=== PATIENT | female | born 1950 | race Caucasian/White ===

== ENCOUNTER 2018-01-23 15:41 | Emergency (ER) | payer OTHER ==
[~2018-01-23] VITALS: Ht 167.6 cm; Wt 65.0 kg
[2018-01-23] MEDS ORDERED: IOHEXOL 350 MG/ML 10 ML VIAL (for RAD DIAG) IVCONTRAST ONE (15:42)
[2018-01-23 15:54] VITALS: BP 133/65; PULSE 88; RESP 16; TEMP 98.2; O2SAT 98
[2018-01-23] MEDS ORDERED: SODIUM CHLOR 0.9% 1000 ML INJ 1,000 ML IV ONE (16:26)
[2018-01-23] MEDS ORDERED: ONDANSETRON HCL 4 MG/2 ML VIAL IV PUSH ONE (16:30)
[2018-01-23] MEDS ORDERED: KETOROLAC TROMETHAMINE 30 MG/ML (IVP) VIAL IV PUSH ONE (16:30)
--- NOTE | 2018-01-23 16:50 | RADRPT ---
EXAM DATE/TIME: 01/23/2018 16:33 [facility] COMPARISON: No previous studies available for comparison. INDICATIONS : Fever and weakness. MEDICAL HISTORY : None. SURGICAL HISTORY : None. ENCOUNTER: Initial ACUITY: 2 days PAIN SCORE: 3/10 LOCATION: Bilateral chest FINDINGS: A single view of the chest demonstrates the lungs to be symmetrically aerated without evidence of mas s, infiltrate or effusion. The cardiomediastinal contours are unremarkable. Osseous structures are intact. CONCLUSION: No acute disease. Vitaly Vasquez MD on January 23, 2018 at 16:48 Board Certified Radiologist. This report was verified electronically.
[2018-01-23 16:56] VITALS: O2SAT 100
[2018-01-23 17:27] LABS: INTERNATIONAL NORMALIZED RATIO 1.1 RATIO; PROTHROMBIN TIME - PATIENT 10.7 SEC (9.8-11.6)
[2018-01-23 17:32] LABS: AUTOMATED NEUTROPHIL # 11.2 TH/MM3 (1.8-7.7); BASOPHIL % 0.2 % (0.0-2.0); HEMATOCRIT 37.9 % (35.0-46.0); LYMPH % 8.2 % (9.0-44.0); LYMPHOCYTE # 1.1 TH/MM3 (1.0-4.8); MEAN CELL VOLUME 84.5 FL (80.0-100.0); MEAN CORPUSCULAR HGB CONC 34.3 % (32.0-36.0); MEAN PLATELET VOLUME 7.6 FL (7.0-11.0); MONO % 6.4 % (0.0-8.0); MONOCYTE # 0.8 TH/MM3 (0-0.9); NEUT % 85.2 % (16.0-70.0); PLATELET COUNT 258 TH/MM3 (150-450); RED BLOOD COUNT 4.48 MIL/MM3 (4.00-5.30); RED CELL DISTRIBUTION WIDTH 13.6 % (11.6-17.2); WHITE BLOOD COUNT 13.1 TH/MM3 (4.0-11.0)
[2018-01-23 17:35] LABS: BILIRUBIN, URINE NEG (NEG); BLOOD, URINE NEG (NEG); GLUCOSE,URINE NEG (NEG); KETONE, URINE 10 mg/dL (NEG); NITRITE,URINE NEG (NEG); SQUAMOUS EPITHELIAL CELL URINE 2 /hpf (0-5); URINE COLOR YELLOW (YELLW/STRAW); URINE LEUKOCYTE ESTERASE SMALL (NEG)
[2018-01-23] MEDS ORDERED: cefTRIAXone INJ 1,000 MG in SODIUM CHLORIDE 0.9% INJ 100 ML IV ONE (17:45)
[2018-01-23 17:49] LABS: ALBUMIN 3.4 GM/DL (3.4-5.0); AST (GOT) 23 U/L (15-37); BICARBONATE 24.9 MEQ/L (21.0-32.0); BLOOD UREA NITROGEN 12 MG/DL (7-18); CALCIUM 9.1 MG/DL (8.5-10.1); CHLORIDE 101 MEQ/L (98-107); CREATININE 0.86 MG/DL (0.50-1.00); GLOMERULAR FILTRATION RATE 66 ML/MIN (>89); GLUCOSE,RANDOM 170 MG/DL (74-106); SODIUM (NA) 136 MEQ/L (136-145)
[2018-01-23 17:55] VITALS: BP 140/67; PULSE 91; RESP 17; O2SAT 96
[2018-01-23 17:55] LABS: ALKALINE PHOSPHATASE 95 U/L (45-117); ALT (GPT) 32 U/L (10-53); TOTAL BILIRUBIN ADULT 0.6 MG/DL (0.2-1.0); TOTAL PROTEIN 7.5 GM/DL (6.4-8.2); TROPONIN I LESS THAN 0.02 NG/ML (0.02-0.05)
--- NOTE | 2018-01-23 18:50 | PD ---
HPI Chief Complaint: Medical Clearance Time Seen by Provider: 16:18 Travel History International Travel<30 days: No Contact w/Intl Traveler<30days: No Traveled to known affect area: No History of Present Illness HPI Patient is a 67-year-old female who comes in complaining of feeling unwell. She says is been going on for the past week. She went to see her doctor and was told she had a UTI and was prescribed Macrobid. She has been taking this, but says she is feeling worse. She says when this first started she had some right flank pain, but that has gone away. She has had some nausea and vomiting. She has had diarrhea. She has a hard time describing what it is that feels badly. She is not sure if she has had a fever. Severity is mild to moderate. [facility] Social History Alcohol Use: No Tobacco Use: No Substance Use: No Allergies-Medications (Allergen,Severity, Reaction): Coded Allergies: No Known Allergies (Unverified , 01/23/18) Review of Systems Except as stated in HPI: all other systems reviewed are Neg HENT: No: Headaches, Lightheadedness Cardiovascular: No: Chest Pain or Discomfort Respiratory: No: Shortness of Breath Gastrointestinal: Positive: Nausea, Vomiting Musculoskeletal: Positive: Myalgias Skin: No Rash Neurologic: No: Weakness, Dizziness Physical Exam Narrative GENERAL: Awake and alert, no acute distress. SKIN: Focused skin assessment warm/dry. No wounds or signs of infection. HEAD: Atraumatic. Normocephalic. EYES: Pupils equal and round. No scleral icterus. ENT: No nasal bleeding or discharge. Mucous membranes pink and moist. NECK: Trachea midline. No JVD. CARDIOVASCULAR: Regular rate and rhythm. No murmur appreciated. RESPIRATORY: No accessory muscle use. Clear to auscultation. Breath sounds equal bilaterally. GASTROINTESTINAL: Abdomen soft, non-tender, nondistended. MUSCULOSKELETAL: No obvious deformities. No clubbing. No cyanosis. No edema. NEUROLOGICAL: Awake and alert. No obvious cranial nerve deficits. Motor grossly within normal limits. Normal speech. PSYCHIATRIC: Appropriate mood and affect; insight and judgment normal. Data Data Last Documented VS Vital Signs Date Time Temp Pulse Resp B/P (MAP) Pulse Ox O2 Delivery O2 Flow Rate FiO2 01/23/18 19:07 97 16 01/23/18 19:06 125/58 (80) 96 Room Air 01/23/18 15:54 98.2 Orders Orders Electrocardiogram (01/23/18 16:26) Complete Blood Count With Diff (01/23/18 16:) Comprehensive Metabolic Panel (01/23/18 16:26) Prothrombin Time / Inr (Pt) (01/23/18 16:26) Act Partial Throm Time (Ptt) (01/23/18 16:26) Lactic Acid Sepsis Protocol (01/23/18 16:) Lipase (01/23/18 16:) Troponin I (01/23/18:) Urinalysis - C+S If Indicated (01/23/18 16:) Influenzae A/B Antigen (01/23/18 16:) Chest, Single Ap (01/23/18 16:) Blood Glucose (01/23/18 16:) Ecg Monitoring (01/23/18 16:26) Iv Access Insert/Monitor (01/23/18 16:) Oximetry (01/23/18 16:) Oxygen Administration (01/23/18 16:) Ondansetron Inj (Zofran Inj) (01/23/18 16:30) Ct Abd/Pel W Iv Contrast(Rout) (01/23/18 16:26) Sodium Chlor 0.9% 1000 Ml Inj (Ns 1000 M (01/23/18 16:26) Ketorolac Inj (Toradol Inj) (01/23/18 16:30) Urine Culture (01/23/18 16:50) Ceftriaxone Inj (Rocephin Inj) (01/23/18 17:45) Iohexol 350 Inj (Omnipaque 350 Inj) (01/23/18 15:42) Labs Laboratory Tests Test 01/23/18 16:50 White Blood Count 13.1 TH/MM3 Red Blood Count 4.48 MIL/MM3 Hemoglobin 13.0 GM/DL Hematocrit 37.9 % Mean Corpuscular Volume 84.5 FL Mean Corpuscular Hemoglobin 29.0 PG Mean Corpuscular Hemoglobin Concent 34.3 % Red Cell Distribution Width 13.6 % Platelet Count 258 TH/MM3 Mean Platelet Volume 7.6 FL Neutrophils (%) (Auto) 85.2 % Lymphocytes (%) (Auto) 8.2 % Monocytes (%) (Auto) 6.4 % Eosinophils (%) (Auto) 0.0 % Basophils (%) (Auto) 0.2 % Neutrophils # (Auto) 11.2 TH/MM3 Lymphocytes # (Auto) 1.1 TH/MM3 Monocytes # (Auto) 0.8 TH/MM3 Eosinophils # (Auto) 0.0 TH/MM3 Basophils # (Auto) 0.0 TH/MM3 CBC Comment DIFF FINAL Differential Comment Prothrombin Time 10.7 SEC Prothromb Time International Ratio 1.1 RATIO Activated Partial Thromboplast Time 31.3 SEC Urine Color YELLOW Urine Turbidity CLEAR Urine pH 6.0 Urine Specific Ken[place] 1.011 Urine Protein 30 mg/dL Urine Glucose (UA) NEG mg/dL Urine Ketones 10 mg/dL Urine Occult Blood NEG Urine Nitrite NEG Urine Bilirubin NEG Urine Urobilinogen LESS THAN 2.0 MG/DL Urine Leukocyte Esterase SMALL Urine WBC 18 /hpf Urine Squamous Epithelial Cells 2 /hpf Microscopic Urinalysis Comment CATH-CULTURE IND Blood Urea Nitrogen 12 MG/DL Creatinine 0.86 MG/DL Random Glucose 170 MG/DL Total Protein 7.5 GM/DL Albumin 3.4 GM/DL Calcium Level 9.1 MG/DL Alkaline Phosphatase 95 U/L Aspartate Amino Transf (AST/SGOT) 23 U/L Alanine Aminotransferase (ALT/SGPT) 32 U/L Total Bilirubin 0.6 MG/DL Sodium Level 136 MEQ/L Potassium Level 3.5 MEQ/L Chloride Level 101 MEQ/L Carbon Dioxide Level 24.9 MEQ/L Anion Gap 10 MEQ/L Estimat Glomerular Filtration Rate 66 ML/MIN Lactic Acid Level 2.0 mmol/L Troponin I LESS THAN 0.02 NG/ML Lipase 82 U/L [facility] Medical Decision Making Medical Screen Exam Complete: Yes Emergency Medical Condition: Yes Differential Diagnosis UTI versus pyelonephritis versus influenza versus dehydration Narrative Course Patient is a 67-year-old female who comes in complaining of feeling unwell. Exam shows no acute abnormalities. IV established, labs sent. Labs show an elevated white blood cell count of 13.1, no other acute abnormalities. Urinalysis is positive for UTI. Patient given IV fluids, Zofran, Toradol. She does report feeling better. Given a dose of Rocephin here. CT abdomen pelvis performed, shows a 2.5 x 3.5 obstructing renal stone. Last 24 hours Impressions Chest X-Ray 01/23/18 9635 Signed Impressions: Service Date/Time: January 16:33 - CONCLUSION: No acute disease. Vitaly Vasquez MD Patient offered admission. She would like to go home at this time. Discharge with a prescription for Cipro. Advised to drink plenty of fluids. Advised to follow-up with urology. Advised return anytime for any worsening symptoms. Diagnosis Primary Impression: UTI (urinary tract infection) Qualified Codes: N30.00 - Acute cystitis without hematuria Additional Impression: Renal stone Referrals: Reggie Young DO call for appointment Patient Instructions: General Instructions, Kidney Stones (ED), Urinary Tract Infection in Women (ED) Additional Instructions: Drink plenty of water. Take ibuprofen or Tylenol as needed for pain or fever. Take all of your antibiotic. Follow-up with urology. Return anytime for any worsening symptoms. Scripts Ondansetron Odt (Zofran Odt) 4 Mg Tab 4 MG SL Q6HR Y for Nausea/Vomiting, #12 TAB 0 Refills Prov: Kim Balderas MD 01/23/18 Tamsulosin (Flomax) 0.4 Mg Cap 0.4 MG PO HS for Manage Prostate Problems, #7 CAP 0 Refills Prov: Kim Balderas MD 01/23/18 Ciprofloxacin (Cipro) 500 Mg Tab 500 MG PO BID for Infection for 14 Days, #28 TAB 0 Refills Prov: Kim Baldersa MD 01/23/18 Disposition: 01 DISCHARGE HOME Condition: Stable Kim Balderas MD Jan 23, 2018 18:50
--- NOTE | 2018-01-23 19:01 | RADRPT ---
EXAM DATE/TIME: 01/23/2018 18:36 [facility] COMPARISON: No previous studies available for comparison. INDICATIONS : Patient complains of abdominal pain. IV CONTRAST: 90 cc Omnipaque 350 (iohexol) IV ORAL CONTRAST: No oral contrast ingested. RADIATION DOSE: 5.89 CTDIvol (mGy) MEDICAL HISTORY : None SURGICAL HISTORY : None. ENCOUNTER: Initial ACUITY: 1 day PAIN SCALE: 5/10 LOCATION: pelvis TECHNIQUE: Volumetric scanning of the abdomen and pelvis was performed. Using automated exposure control and ad justment of the mA and/or kV according to patient size, radiation dose was kept as low as reasonably achievable to obtain optimal diagnostic quality images. DICOM format image data is available electro nically for review and comparison. FINDINGS: Lung bases clear except minimal dependent atelectasis. No acute findings in the liver, spleen, adrena ls, left kidney or pancreas. There is a large exophytic cyst lower pole left kidney measuring up to 1 1.6 cm in diameter. There is right-sided perinephric stranding and there is some diminished enhancement of the right kidn ey relative to the left kidney. Minimal dilatation right renal collecting system and right ureter. Th ere is an approximately 2.5 x 3.5 mm calculus in the distal right ureter. No pelvic mass or free fluid. Colonic diverticula noted. CONCLUSION: 1. Right-sided obstructive uropathy with 2.5 x 3.5 mm calculus in distal right ureter an associated r ight-sided perinephric stranding and diminished enhancement. Glenn Hutchins MD on January 23, 2018 at 18:55 Board Certified Radiologist. This report was verified electronically.
[2018-01-23 19:06] VITALS: BP 125/58; PULSE 97; RESP 16; O2SAT 96
[2018-01-23] MEDS ORDERED: CIPR-9 PO (19:11)
[2018-01-23] MEDS ORDERED: TAMS5CAP PO (19:11)
[2018-01-23] MEDS ORDERED: ZOFR4TAB3 SL (19:11)
--- NOTE | 2018-01-24 20:43 | EKG ---
Date Performed: 01/23/2018 Time Performed: 17:20:43 PTAGE: 67 years EKG: Sinus rhythm WITH OCCASIONAL SUPRAVENTRICULAR PREMATURE COMPLEXES POSSIBLE LEFT ATRIAL ENLARGEMENT CONSIDER INFER IOR MYOCARDIAL INFARCTION, AGE INDETERMINATE ABNORMAL ECG NO PREVIOUS TRACING DOCTOR: Norman Alexandra Interpretating Date/Time 01/24/2018 20:42:28
== END 2018-01-23 20:57 | disposition home or self-care (01) ==
LOC: NEPC 15:41
DX: N30.00 Acute cystitis without hematuria (principal); N20.0 Calculus of kidney; R94.31 Abnormal electrocardiogram [ECG] [EKG]
CPT/HCPCS: 71045; 74177; 80053; 81001; 83605; 83690; 84484; 85025; 85610; 85730; 87077; 87086; 87186; 87804; 93005; 96361; 96374; 96375; 99285; J0696; J1885; J2405; J7030; Q9967